=== PATIENT | female | born 1980 ===

== ENCOUNTER 2024-07-25 06:22 | Day surgery (SDC) | payer OTHER, SELFPAY | END 2024-07-25 11:18 | disposition home or self-care (01) | LOC: GI 06:22 | PROVIDERS: ATTENDING PHYSICIAN Internal Medicine Gastroenterology | DX: Z12.11 Encounter for screening for malignant neoplasm of colon (principal); Z80.0 Family history of malignant neoplasm of digestive organs; K64.8 Other hemorrhoids | CPT/HCPCS: G0105 ==